=== PATIENT | female | born 1955 | race Hispanic/Latino ===

== ENCOUNTER → 2019-11-21 | Outpatient (CLI) | payer OTHER, MEDICARE ==
[~2019-11-21] MED LIST: IOHEXOL 350 MG/ML 100ML INFUS..BTL IV ONE
== END | disposition home or self-care (01) ==
LOC: RAH 07:32
PROVIDERS: ATTEND Internal Medicine Gastroenterology
DX: C18.7 Malignant neoplasm of sigmoid colon (principal); J98.11 Atelectasis; K80.20 Calculus of gallbladder without cholecystitis without obstruction; E65 Localized adiposity; M47.814 Spondylosis without myelopathy or radiculopathy, thoracic region; Z90.710 Acquired absence of both cervix and uterus
CPT/HCPCS: 71270; 74178; Q9967

== ENCOUNTER → 2022-01-22 | Outpatient (CLI) | payer OTHER, MEDICARE ==
[~2022-01-22] MED LIST changes: -IOHEXOL 350 MG/ML 100ML INFUS..BTL IV ONE; +LIDOCAINE HCL 4% LTA SOL 4 ML VIAL ONE
== END | disposition home or self-care (01) ==
LOC: WHH 09:29
PROVIDERS: ATTEND Family Medicine
DX: I89.0 Lymphedema, not elsewhere classified (principal); S81.802D Unspecified open wound, left lower leg, subsequent encounter; E11.51 Type 2 diabetes mellitus with diabetic peripheral angiopathy without gangrene; I10 Essential (primary) hypertension; E78.5 Hyperlipidemia, unspecified; M47.814 Spondylosis without myelopathy or radiculopathy, thoracic region; Z95.1 Presence of aortocoronary bypass graft; Z90.49 Acquired absence of other specified parts of digestive tract; Z90.710 Acquired absence of both cervix and uterus; Z79.4 Long term (current) use of insulin; Z79.82 Long term (current) use of aspirin; Z79.899 Other long term (current) drug therapy; Z85.038 Personal history of other malignant neoplasm of large intestine; X58.XXXD Exposure to other specified factors, subsequent encounter
CPT/HCPCS: G0463

== ENCOUNTER → 2022-02-05 | Outpatient (CLI) | payer OTHER, MEDICARE | END | disposition home or self-care (01) | LOC: WHH 09:40 | PROVIDERS: ATTEND Family Medicine | DX: I89.0 Lymphedema, not elsewhere classified (principal); S81.802D Unspecified open wound, left lower leg, subsequent encounter; E11.51 Type 2 diabetes mellitus with diabetic peripheral angiopathy without gangrene; I10 Essential (primary) hypertension; E78.5 Hyperlipidemia, unspecified; B35.1 Tinea unguium; R60.0 Localized edema; M47.814 Spondylosis without myelopathy or radiculopathy, thoracic region; Z95.1 Presence of aortocoronary bypass graft; Z90.49 Acquired absence of other specified parts of digestive tract; Z90.710 Acquired absence of both cervix and uterus; Z79.4 Long term (current) use of insulin; Z79.82 Long term (current) use of aspirin; Z79.899 Other long term (current) drug therapy; Z85.038 Personal history of other malignant neoplasm of large intestine; X58.XXXD Exposure to other specified factors, subsequent encounter | CPT/HCPCS: 11721 ==

== ENCOUNTER → 2022-05-12 | Outpatient (CLI) | payer OTHER, MEDICARE | END | disposition home or self-care (01) | LOC: SHCH 09:21 | PROVIDERS: ATTEND Internal Medicine Cardiovascular Disease | DX: I25.118 Atherosclerotic heart disease of native coronary artery with other forms of angina pectoris (principal); I87.2 Venous insufficiency (chronic) (peripheral); E11.9 Type 2 diabetes mellitus without complications; E78.5 Hyperlipidemia, unspecified; I11.9 Hypertensive heart disease without heart failure | CPT/HCPCS: 93306; 93970 ==

== ENCOUNTER → 2022-05-21 | Outpatient (CLI) | payer OTHER, MEDICARE ==
[2022-05-21 12:22] LABS: BASOPHILS % (AUTO) 0.7 % (0.0-5.0); EOSINOPHILS % (AUTO) 5.4 % (0.0-8.0); HEMATOCRIT 35.6 % (36-48); LYMPHOCYTES % (AUTO) 23.1 % (21.0-51.0); MEAN CORPUSCULAR HEMOGLOBIN 29.1 pg (27.0-33.0); MEAN CORPUSCULAR HGB CONC 34.6 g/dL (32.0-36.0); MEAN CORPUSCULAR VOLUME 84.2 fL (79-99); MONOCYTES % (AUTO) 6.4 % (3.0-13.0); NEUTROPHILS % (AUTO) 64.2 % (40.0-77.0); PLATELET COUNT (AUTO) 305 K/uL (130-400); RED BLOOD CELL COUNT(AUTO) 4.23 MIL/uL (4.00-5.50); RED CELL DISTRIBUTION WIDTH 13.8 % (11.0-15.5); WHITE BLOOD COUNT (AUTO) 6.1 K/uL (4.8-10.8)
[2022-05-21 12:39] LABS: ALBUMIN 1.5 g/dL (3.5-5.0); CREATININE 1.8 mg/dL (0.5-1.5); POTASSIUM 3.3 mmol/L (3.5-5.1); TOTAL PROTEIN, SERUM 5.6 g/dL (6.0-8.3)
[2022-05-21 13:44] LABS: B-TYPE NATRIURETIC PEPTIDE 156 pg/mL (0-100)
== END | disposition home or self-care (01) ==
LOC: LAB 08:30
PROVIDERS: ATTEND Internal Medicine Cardiovascular Disease
DX: I50.31 Acute diastolic (congestive) heart failure (principal)
CPT/HCPCS: 36415; 80053; 83880; 85025

== ENCOUNTER 2022-06-09 15:41 | Inpatient (IN) | payer OTHER, MEDICARE ==
[~2022-06-09] VITALS: Ht 157.5 cm; Wt 93.3 kg
[2022-06-09] MEDS ORDERED: POTA-183 PO (16:15)
[2022-06-09] MEDS ORDERED: ISOS30TA92 PO (16:16)
[2022-06-09] MEDS ORDERED: AMOX500C2 PO (16:18)
[2022-06-09] MEDS ORDERED: FURO40TA5 PO (16:19)
[2022-06-09] MEDS ORDERED: CARV12.511 PO (16:21)
[2022-06-09] MEDS ORDERED: PREG75CA75 PO (16:21)
[2022-06-09] MEDS ORDERED: ATOR40TA69 PO (16:22)
[2022-06-09] MEDS ORDERED: CETI10TA57 PO (16:24)
[2022-06-09] MEDS ORDERED: AMLO-258 PO (16:24)
[2022-06-09 16:34] LABS: BASOPHILS % (AUTO) 0.8 % (0.0-5.0); EOSINOPHILS % (AUTO) 5.7 % (0.0-8.0); HEMATOCRIT 31.2 % (36-48); LYMPHOCYTES % (AUTO) 15.6 % (21.0-51.0); MEAN CORPUSCULAR HEMOGLOBIN 29.1 pg (27.0-33.0); MEAN CORPUSCULAR HGB CONC 34.6 g/dL (32.0-36.0); MEAN CORPUSCULAR VOLUME 84.1 fL (79-99); NEUTROPHILS % (AUTO) 71.5 % (40.0-77.0); PLATELET COUNT (AUTO) 328 K/uL (130-400); RED BLOOD CELL COUNT(AUTO) 3.71 MIL/uL (4.00-5.50); RED CELL DISTRIBUTION WIDTH 13.3 % (11.0-15.5); WHITE BLOOD COUNT (AUTO) 7.9 K/uL (4.8-10.8)
[2022-06-09 16:44] LABS: CREATININE 1.6 mg/dL (0.5-1.5); POTASSIUM 3.8 mmol/L (3.5-5.1)
[2022-06-09 16:53] LABS: ALBUMIN 1.7 g/dL (3.5-5.0); TOTAL PROTEIN, SERUM 5.8 g/dL (6.0-8.3)
[2022-06-09] MEDS ORDERED: IPRATROPIUM/ALBUTEROL SULFATE 3 ML SOLUTION IH ONE (17:00)
[2022-06-09] MEDS ORDERED: FUROSEMIDE 40MG VIAL IV ONE (17:00)
[2022-06-09 17:11] LABS: B-TYPE NATRIURETIC PEPTIDE 452 pg/mL (0-100)
[2022-06-09] MEDS: CEFTRIAXONE 1G VIAL IV SCH (18:30)
[2022-06-09] MEDS ORDERED: LACTULOSE 20 GM/30 ML UDCUP PO PRN (18:30)
[2022-06-09] MEDS ORDERED: ONDANSETRON 4MG INJ IV PRN (18:30)
[2022-06-09] MEDS ORDERED: ACETAMINOPHEN 325 MG TAB PO PRN ×2 (18:30)
[2022-06-09] MEDS ORDERED: AZITHROMYCIN 500MG+NS 250ML IVPB SCH (18:30)
[2022-06-09] MEDS ORDERED: CEFTRIAXONE 1G VIAL IVP ONE (18:30)
[2022-06-09 19:03] LABS: APPEARANCE,URINE CLEAR (CLEAR); BILIRUBIN,URINE NEGATIVE (NEGATIVE); COLOR,URINE COLORLESS (YELLOW); GLUCOSE, URINE (UA) 200 mg/dL (NEGATIVE); KETONES,URINE NEGATIVE (NEGATIVE); LEUKOCYTE ESTERASE ,URINE NEGATIVE Leu/uL (NEGATIVE); NITRATE,URINE NEGATIVE (NEGATIVE); PH,URINE 6.5 (5.0-8.0); PROTEIN,URINE 200 mg/dL (NEGATIVE); UROBILINOGEN,URINE 0.2 mg/dL (0.2-1.0)
[2022-06-09 19:08] LABS: BACTERIA,URINE RARE /HPF (None Seen); MUCUS,URINE RARE LPF (None Seen)
[2022-06-09] MEDS ORDERED: CETIRIZINE HCL 5 MG TABLET PO PRN (20:00)
[2022-06-09] MEDS ORDERED: SODIUM CHLORIDE 3% FOR INHALATION 4 ML/AMP VIAL.NEB IH ONE (21:07)
[2022-06-09] MEDS: BUDESONIDE 0.25 MG/2 ML INH IH SCH (21:09)
[2022-06-09] MEDS: SOLU-MEDROL 40MG VIAL IVP SCH (21:11)
[2022-06-09] MEDS: CARVEDILOL 12.5 MG TABLET PO SCH (21:11)
[2022-06-09] MEDS: PREGABALIN 75 MG CAPSULE PO SCH (21:11)
[2022-06-09] MEDS: FAMOTIDINE 20MG TAB PO SCH (21:11)
[2022-06-09] MEDS: INSULIN HUMULIN R 100 UNIT/ML 3ML SQ SCH (22:50)
[2022-06-09 23:30] VITALS: BP 132/69
[2022-06-09] MEDS ORDERED: ASPI-1443 PO (23:34)
[2022-06-09] MEDS ORDERED: INSU3INS3 SQ (23:35)
[2022-06-09] MEDS: ALBUTEROL 0.083% 2.5 MG/3 ML INH IH SCH (23:39)
[2022-06-10 04:25] VITALS: BP 159/70
[2022-06-10] MEDS: INSULIN HUMULIN R 100 UNIT/ML 3ML SQ SCH ×3 (05:51→18:10)
[2022-06-10] MEDS ORDERED: SODIUM CHLORIDE 3% FOR INHALATION 4 ML/AMP VIAL.NEB IH ONE ×2 (06:33→11:14)
[2022-06-10] MEDS: ALBUTEROL 0.083% 2.5 MG/3 ML INH IH SCH ×4 (06:34→23:32)
[2022-06-10] MEDS: BUDESONIDE 0.25 MG/2 ML INH IH SCH ×2 (06:35→19:05)
[2022-06-10 08:00] VITALS: BP 152/66
[2022-06-10 08:22] LABS: HEMATOCRIT 32.6 % (36-48); MEAN CORPUSCULAR HEMOGLOBIN 28.5 pg (27.0-33.0); MEAN CORPUSCULAR HGB CONC 33.1 g/dL (32.0-36.0); RED BLOOD CELL COUNT(AUTO) 3.79 MIL/uL (4.00-5.50); RED CELL DISTRIBUTION WIDTH 13.2 % (11.0-15.5); WHITE BLOOD COUNT (AUTO) 7.2 K/uL (4.8-10.8)
[2022-06-10 08:29] LABS: CREATININE 1.7 mg/dL (0.5-1.5); POTASSIUM 4.1 mmol/L (3.5-5.1)
[2022-06-10] MEDS: PREGABALIN 75 MG CAPSULE PO SCH ×2 (08:50→20:03)
[2022-06-10] MEDS: SOLU-MEDROL 40MG VIAL IVP SCH ×2 (08:51→20:03)
[2022-06-10] MEDS: CARVEDILOL 12.5 MG TABLET PO SCH ×2 (08:51→20:03)
[2022-06-10] MEDS: AMLODIPINE 5 MG TAB PO SCH (08:51)
[2022-06-10] MEDS: FUROSEMIDE 20MG VIAL IV SCH (10:50)
[2022-06-10 10:51] LABS: HEMOGLOBIN A1C 8.2 % (4.0-6.0)
[2022-06-10] MEDS ORDERED: POTASSIUM CHLORIDE 10% ELIXIR 20 MEQ/15 ML UDCUP PO PRN (11:00)
[2022-06-10] MEDS ORDERED: KCL 20 MEQ ERTAB PO PRN (11:00)
[2022-06-10] MEDS ORDERED: POTASSIUM CHLORIDE 20MEQ/100ML 100 ML IV PRN (11:00)
[2022-06-10] MEDS ORDERED: LIDOCAINE HCL-MPF 1% 2ML VIAL IV PRN (11:00)
[2022-06-10 12:00] VITALS: BP 168/68
[2022-06-10 16:00] VITALS: BP 159/61
[2022-06-10] MEDS: ATORVASTATIN 40 MG TABLET PO SCH (18:09)
[2022-06-10] MEDS: ISOSORBIDE MONO 30MG SR TAB PO SCH (18:09)
[2022-06-10] MEDS: AZITHROMYCIN 500MG+NS 250ML 250 ML IV SCH (18:09)
[2022-06-10] MEDS: CEFTRIAXONE 1G VIAL IV SCH (18:09)
[2022-06-10] MEDS: FAMOTIDINE 20MG TAB PO SCH (20:03)
[2022-06-10 20:44] VITALS: BP 153/67
[2022-06-10 23:47] VITALS: BP 144/66
[2022-06-11 03:41] VITALS: BP 136/68
[2022-06-11 04:24] LABS: BASOPHILS % (AUTO) 0.1 % (0.0-5.0); HEMATOCRIT 30.1 % (36-48); LYMPHOCYTES % (AUTO) 7.4 % (21.0-51.0); MEAN CORPUSCULAR HEMOGLOBIN 28.9 pg (27.0-33.0); MEAN CORPUSCULAR HGB CONC 34.2 g/dL (32.0-36.0); MEAN CORPUSCULAR VOLUME 84.6 fL (79-99); MONOCYTES % (AUTO) 1.8 % (3.0-13.0); NEUTROPHILS % (AUTO) 90.2 % (40.0-77.0); PLATELET COUNT (AUTO) 353 K/uL (130-400); RED BLOOD CELL COUNT(AUTO) 3.56 MIL/uL (4.00-5.50); RED CELL DISTRIBUTION WIDTH 13.2 % (11.0-15.5); WHITE BLOOD COUNT (AUTO) 10.2 K/uL (4.8-10.8)
[2022-06-11 04:43] LABS: % IRON SATURATION 27.8 % (22-44)
[2022-06-11 05:01] LABS: ALBUMIN 1.8 g/dL (3.5-5.0); CREATININE 1.8 mg/dL (0.5-1.5); MAGNESIUM 1.9 mg/dL (1.80-2.40); PHOSPHORUS 4.7 mg/dL (2.5-4.9); POTASSIUM 3.9 mmol/L (3.5-5.1); TOTAL PROTEIN, SERUM 5.8 g/dL (6.0-8.3); URIC ACID 6.1 mg/dL (2.6-7.2)
[2022-06-11] MEDS: INSULIN HUMULIN R 100 UNIT/ML 3ML SQ SCH ×5 (06:53→20:04)
[2022-06-11] MEDS: BUDESONIDE 0.25 MG/2 ML INH IH SCH ×2 (07:03→18:23)
[2022-06-11] MEDS: ALBUTEROL 0.083% 2.5 MG/3 ML INH IH SCH ×4 (07:03→23:07)
[2022-06-11 08:00] VITALS: BP 149/67
[2022-06-11] MEDS: FUROSEMIDE 20MG VIAL IV SCH (08:48)
[2022-06-11] MEDS: SOLU-MEDROL 40MG VIAL IVP SCH (08:49)
[2022-06-11] MEDS: AMLODIPINE 5 MG TAB PO SCH (08:49)
[2022-06-11] MEDS: PREGABALIN 75 MG CAPSULE PO SCH ×2 (08:49→20:10)
[2022-06-11] MEDS: ENOXAPARIN SODIUM 40 MG/0.4 ML SYRINGE SQ SCH (08:49)
[2022-06-11] MEDS: Vitamin B Complex/Vit C/Folic Acid PO SCH (08:49)
[2022-06-11] MEDS: CARVEDILOL 12.5 MG TABLET PO SCH ×2 (08:50→20:10)
[2022-06-11 11:57] VITALS: BP 150/66
[2022-06-11] MEDS ORDERED: COMPOUND IV MISC 1 EACH IVSOLN MISC PRN (12:30)
[2022-06-11 16:00] VITALS: BP 151/68
[2022-06-11] MEDS ORDERED: SODIUM CHLORIDE 3% FOR INHALATION 4 ML/AMP VIAL.NEB IH ONE ×2 (16:13→23:04)
[2022-06-11] MEDS ORDERED: 0.9% NACL 250ML 250 ML ONE (17:18)
[2022-06-11] MEDS: AZITHROMYCIN 500MG+NS 250ML 250 ML IV SCH (17:42)
[2022-06-11] MEDS: ISOSORBIDE MONO 30MG SR TAB PO SCH (17:43)
[2022-06-11] MEDS: ATORVASTATIN 40 MG TABLET PO SCH (17:43)
[2022-06-11] MEDS: CEFTRIAXONE 1G VIAL IV SCH (18:46)
[2022-06-11] MEDS: FAMOTIDINE 20MG TAB PO SCH (20:10)
[2022-06-11 20:56] VITALS: BP 138/65
[2022-06-11] MEDS ORDERED: SOLU-MEDROL 40MG VIAL IVP SCH (21:00)
[2022-06-12 00:46] VITALS: BP 133/64
[2022-06-12 04:05] VITALS: BP 141/72
[2022-06-12 04:24] LABS: CREATININE 1.9 mg/dL (0.5-1.5); POTASSIUM 3.6 mmol/L (3.5-5.1)
[2022-06-12 04:27] LABS: HEMATOCRIT 31.5 % (36-48); MEAN CORPUSCULAR HEMOGLOBIN 28.9 pg (27.0-33.0); MEAN CORPUSCULAR HGB CONC 34.9 g/dL (32.0-36.0); MEAN CORPUSCULAR VOLUME 82.9 fL (79-99); RED BLOOD CELL COUNT(AUTO) 3.8 MIL/uL (4.00-5.50); RED CELL DISTRIBUTION WIDTH 13.1 % (11.0-15.5); WHITE BLOOD COUNT (AUTO) 11.6 K/uL (4.8-10.8)
[2022-06-12] MEDS: INSULIN HUMULIN R 100 UNIT/ML 3ML SQ SCH ×4 (06:16→11:50)
[2022-06-12] MEDS: ALBUTEROL 0.083% 2.5 MG/3 ML INH IH SCH ×2 (07:01→11:01)
[2022-06-12] MEDS: BUDESONIDE 0.25 MG/2 ML INH IH SCH (07:01)
[2022-06-12 07:04] VITALS: BP 154/73
[2022-06-12] MEDS ORDERED: IRON SUCROSE COMPLEX 300 MG in 0.9%NACL 50ML 50 ML IV SCH (09:00)
[2022-06-12] MEDS ORDERED: PREDNISONE 20 MG TABLET PO SCH (09:00)
[2022-06-12] MEDS ORDERED: FUROSEMIDE 40 MG TABLET PO SCH (09:00)
[2022-06-12] MEDS: ENOXAPARIN SODIUM 40 MG/0.4 ML SYRINGE SQ SCH (09:42)
[2022-06-12] MEDS: PREGABALIN 75 MG CAPSULE PO SCH (09:42)
[2022-06-12] MEDS: AMLODIPINE 5 MG TAB PO SCH (09:42)
[2022-06-12 09:43] VITALS: BP 154/73
[2022-06-12] MEDS: CARVEDILOL 12.5 MG TABLET PO SCH (09:43)
[2022-06-12] MEDS: Vitamin B Complex/Vit C/Folic Acid PO SCH (09:43)
[2022-06-12] MEDS ORDERED: PRED10TA3 PO (12:04)
[2022-06-12] MEDS ORDERED: LEVO750T68 PO (12:04)
== END 2022-06-12 15:45 | disposition home or self-care (01) | DRG 291 ==
LOC: EDH 15:41 → EDHIP 18:30 → 4AH 23:11
PROVIDERS: ADMIT Hospitalist; ATTEND Hospitalist
DX: I11.0 Hypertensive heart disease with heart failure (principal); J18.9 Pneumonia, unspecified organism; J91.8 Pleural effusion in other conditions classified elsewhere; N17.9 Acute kidney failure, unspecified; Z20.822 Contact with and (suspected) exposure to COVID-19; I50.9 Heart failure, unspecified; E66.9 Obesity, unspecified; Z68.37 Body mass index [BMI] 37.0-37.9, adult; M94.0 Chondrocostal junction syndrome [Tietze]; D50.9 Iron deficiency anemia, unspecified; E11.21 Type 2 diabetes mellitus with diabetic nephropathy; E11.51 Type 2 diabetes mellitus with diabetic peripheral angiopathy without gangrene; E11.65 Type 2 diabetes mellitus with hyperglycemia; E78.00 Pure hypercholesterolemia, unspecified; I25.10 Atherosclerotic heart disease of native coronary artery without angina pectoris; Z90.710 Acquired absence of both cervix and uterus
CPT/HCPCS: 36415; 71045; 76770; 80048; 80053; 81001; 82728; 82948; 83036; 83540; 83550; 83735; 83880; 84100; 84484; 84550; 85025; 85027; 86738; 87449; 87635; 93005; 94640; 94664; 94760; C9803; G0378; J0456; J0696; J1650; J1756; J1815; J1940; J2920; J7050

== ENCOUNTER 2022-07-20 07:15 | Inpatient (IN) | payer OTHER, MEDICARE ==
[~2022-07-20] VITALS: Ht 157.5 cm; Wt 79.8 kg
[~2022-07-20 07:15] MED LIST changes: +AMLO-258 PO; +ASPI-1443 PO; +ATOR40TA69 PO; +CARV12.511 PO; +CETI10TA57 PO; +FURO40TA5 PO; +INSU3INS3 SQ; +ISOS30TA92 PO; +LEVO750T68 PO; -LIDOCAINE HCL 4% LTA SOL 4 ML VIAL ONE; +POTA-183 PO; +PRED10TA3 PO; +PREG75CA75 PO
[2022-07-20 07:35] LABS: BASOPHILS % (AUTO) 0.3 % (0.0-5.0); HEMATOCRIT 31.6 % (36-48); MEAN CORPUSCULAR HEMOGLOBIN 28.6 pg (27.0-33.0); MEAN CORPUSCULAR HGB CONC 34.2 g/dL (32.0-36.0); MEAN CORPUSCULAR VOLUME 83.6 fL (79-99); MONOCYTES % (AUTO) 6.5 % (3.0-13.0); NEUTROPHILS % (AUTO) 85.7 % (40.0-77.0); PLATELET COUNT (AUTO) 263 K/uL (130-400); RED BLOOD CELL COUNT(AUTO) 3.78 MIL/uL (4.00-5.50); RED CELL DISTRIBUTION WIDTH 13.1 % (11.0-15.5); WHITE BLOOD COUNT (AUTO) 8.8 K/uL (4.8-10.8)
[2022-07-20 07:57] LABS: CREATININE 1.6 mg/dL (0.5-1.5); POTASSIUM 3.4 mmol/L (3.5-5.1); TOTAL PROTEIN, SERUM 5.8 g/dL (6.0-8.3)
[2022-07-20 08:07] LABS: B-TYPE NATRIURETIC PEPTIDE 584 pg/mL (0-100)
[2022-07-20] MEDS ORDERED: FUROSEMIDE 40MG VIAL IV ONE (08:30)
[2022-07-20] MEDS ORDERED: ASPIRIN 81MG CHEW TAB PO SCH (09:00)
[2022-07-20] MEDS ORDERED: HYDRALAZINE 20MG/ML VIAL IV PRN ×2 (09:00)
[2022-07-20] MEDS ORDERED: ACETAMINOPHEN 650 MG SUPPOSITORY RC PRN (09:00)
[2022-07-20] MEDS ORDERED: CEFTRIAXONE 1G VIAL IVP ONE (09:00)
[2022-07-20] MEDS ORDERED: ONDANSETRON 4MG INJ IVP PRN (09:00)
[2022-07-20] MEDS ORDERED: SOLU-MEDROL 125MG VIAL IM ONE (09:00)
[2022-07-20] MEDS: SOLU-MEDROL 125MG VIAL IVP SCH ×2 (09:00→17:22)
[2022-07-20] MEDS ORDERED: LACTULOSE 20 GM/30 ML UDCUP PO PRN (09:00)
[2022-07-20] MEDS ORDERED: OSELTAMIVIR PHOSPHATE 75 MG CAP PO SCH (09:00)
[2022-07-20] MEDS ORDERED: TEMAZEPAM 15 MG CAPSULE PO PRN (09:00)
[2022-07-20] MEDS ORDERED: METOPROLOL TARTRATE 25 MG TAB PO SCH (09:00)
[2022-07-20] MEDS: AZITHROMYCIN 500MG+NS 250ML IVPB SCH (09:10)
[2022-07-20] MEDS ORDERED: POTASSIUM CHLORIDE 20MEQ/100ML 100 ML IV PRN (09:30)
[2022-07-20] MEDS ORDERED: LIDOCAINE HCL-MPF 1% 2ML VIAL IV PRN (09:30)
[2022-07-20] MEDS ORDERED: POTASSIUM CHLORIDE 10% ELIXIR 20 MEQ/15 ML UDCUP PO PRN (09:30)
[2022-07-20 09:32] LABS: APPEARANCE,URINE CLEAR (CLEAR); BILIRUBIN,URINE NEGATIVE (NEGATIVE); COLOR,URINE LIGHT-YELLOW (YELLOW); GLUCOSE, URINE (UA) >=1000 mg/dL (NEGATIVE); KETONES,URINE NEGATIVE (NEGATIVE); LEUKOCYTE ESTERASE ,URINE NEGATIVE Leu/uL (NEGATIVE); NITRATE,URINE NEGATIVE (NEGATIVE); OCCULT BLOOD,URINE SMALL (NEGATIVE); PROTEIN,URINE 600 mg/dL (NEGATIVE); UROBILINOGEN,URINE 0.2 mg/dL (0.2-1.0)
[2022-07-20] MEDS: OSELTAMIVIR PHOSPHATE 300 MG, WATER FOR INJECTION,STERILE 10 ML, COMPOUNDING VEHICLE SF... PO SCH ×6 (09:32→21:13)
[2022-07-20 09:38] LABS: BACTERIA,URINE RARE /HPF (None Seen); MUCUS,URINE RARE LPF (None Seen); SQUAMOUS EPITHELIAL CELL,UR RARE /HPF (0-2); WBC,URINE 0-1 /HPF (0-1)
[2022-07-20] MEDS ORDERED: COMPOUND PO MISCELLANEOUS 1 EACH MISC MISC PRN (10:00)
[2022-07-20] MEDS: KCL 20 MEQ ERTAB PO PRN ×2 (10:16→13:21)
[2022-07-20] MEDS: ENOXAPARIN SODIUM 40 MG/0.4 ML SYRINGE SQ SCH (10:18)
[2022-07-20] MEDS ORDERED: IPRATROPIUM/ALBUTEROL SULFATE 3 ML SOLUTION IH ONE (10:40)
[2022-07-20 11:00] VITALS: BP 140/64
[2022-07-20] MEDS: INSULIN HUMULIN R 100 UNIT/ML 3ML SQ SCH ×3 (11:39→21:15)
[2022-07-20] MEDS ORDERED: CETIRIZINE HCL 5 MG TABLET PO PRN (14:00)
[2022-07-20 16:00] VITALS: BP 185/79
[2022-07-20] MEDS: ISOSORBIDE MONO 30MG SR TAB PO SCH (17:20)
[2022-07-20] MEDS: ATORVASTATIN 40 MG TABLET PO SCH (17:20)
[2022-07-20] MEDS: CEFTRIAXONE 2GM VIAL IVP SCH (17:30)
[2022-07-20] MEDS ORDERED: CARVEDILOL 6.25 MG TABLET PO ONE (17:30)
[2022-07-20] MEDS: IPRATROPIUM/ALBUTEROL SULFATE 3 ML SOLUTION IH SCH ×2 (18:56→23:40)
[2022-07-20 20:13] VITALS: BP 156/77
[2022-07-20] MEDS: CARVEDILOL 12.5 MG TABLET PO SCH (21:13)
[2022-07-20] MEDS: FUROSEMIDE 20MG VIAL IV SCH (21:13)
[2022-07-20] MEDS: CLONIDINE HCL 0.1 MG TABLET PO PRN (22:32)
[2022-07-21] MEDS: SOLU-MEDROL 125MG VIAL IVP SCH (00:59)
[2022-07-21 03:51] VITALS: BP 145/56
[2022-07-21 05:12] LABS: HEMATOCRIT 29.3 % (36-48); MEAN CORPUSCULAR HEMOGLOBIN 28.3 pg (27.0-33.0); MEAN CORPUSCULAR HGB CONC 34.1 g/dL (32.0-36.0); RED BLOOD CELL COUNT(AUTO) 3.53 MIL/uL (4.00-5.50); RED CELL DISTRIBUTION WIDTH 13.2 % (11.0-15.5); WHITE BLOOD COUNT (AUTO) 4.8 K/uL (4.8-10.8)
[2022-07-21 05:31] LABS: CREATININE 1.6 mg/dL (0.5-1.5); PHOSPHORUS 3.2 mg/dL (2.5-4.9); POTASSIUM 3.2 mmol/L (3.5-5.1)
[2022-07-21] MEDS: IPRATROPIUM/ALBUTEROL SULFATE 3 ML SOLUTION IH SCH ×4 (07:22→23:14)
[2022-07-21 07:30] VITALS: BP 183/97
[2022-07-21] MEDS: AZITHROMYCIN 500MG+NS 250ML IVPB SCH (09:45)
[2022-07-21] MEDS: ASPIRIN 81 MG EC TAB PO SCH (09:46)
[2022-07-21] MEDS: DEXAMETHASONE SOD PHOSPHATE 4 MG/ML 1ML VIAL IV SCH (09:46)
[2022-07-21] MEDS: CARVEDILOL 12.5 MG TABLET PO SCH ×2 (09:47→21:33)
[2022-07-21] MEDS: ENOXAPARIN SODIUM 40 MG/0.4 ML SYRINGE SQ SCH (09:49)
[2022-07-21] MEDS: OSELTAMIVIR PHOSPHATE 300 MG, WATER FOR INJECTION,STERILE 10 ML, COMPOUNDING VEHICLE SF... PO SCH ×6 (09:50→21:32)
[2022-07-21] MEDS: INSULIN HUMULIN R 100 UNIT/ML 3ML SQ SCH ×4 (09:55→21:31)
[2022-07-21] MEDS: FUROSEMIDE 20MG VIAL IV SCH ×2 (09:57→21:33)
[2022-07-21 10:34] LABS: ABG BASE EXCESS 1.3 mmol/L (-2.0-3.0); ABG HCO3 26.2 mmol/L (21.0-28.0); ABG OXYGEN SATURATION 93.8 % (95.0-99.0); ABG PCO2 42 mmHg (32-45)
[2022-07-21 11:00] VITALS: BP 164/62
[2022-07-21] MEDS: FAMOTIDINE 20MG TAB PO SCH (12:53)
[2022-07-21] MEDS: KCL 20 MEQ ERTAB PO SCH (14:44)
[2022-07-21] MEDS: CLONIDINE HCL 0.1 MG TABLET PO PRN (15:57)
[2022-07-21 16:00] VITALS: BP 155/89
[2022-07-21] MEDS: CEFTRIAXONE 2GM VIAL IVP SCH (18:15)
[2022-07-21] MEDS: ISOSORBIDE MONO 30MG SR TAB PO SCH (18:16)
[2022-07-21] MEDS: KCL 20 MEQ ERTAB PO PRN (18:16)
[2022-07-21] MEDS: ATORVASTATIN 40 MG TABLET PO SCH (18:17)
[2022-07-21 20:00] VITALS: BP 150/75
[2022-07-22] VITALS (7 sets, daily range): BP systolic 142–203; BP diastolic 59–78
[2022-07-22] MEDS: ACETAMINOPHEN 325 MG TAB PO PRN ×2 (01:00→21:21)
[2022-07-22 05:42] LABS: HEMATOCRIT 32.8 % (36-48); MEAN CORPUSCULAR HEMOGLOBIN 28.6 pg (27.0-33.0); MEAN CORPUSCULAR HGB CONC 34.8 g/dL (32.0-36.0); MEAN CORPUSCULAR VOLUME 82.2 fL (79-99); RED BLOOD CELL COUNT(AUTO) 3.99 MIL/uL (4.00-5.50); RED CELL DISTRIBUTION WIDTH 13.2 % (11.0-15.5); WHITE BLOOD COUNT (AUTO) 12.9 K/uL (4.8-10.8)
[2022-07-22] MEDS: INSULIN HUMULIN R 100 UNIT/ML 3ML SQ SCH ×4 (06:01→21:18)
[2022-07-22 06:05] LABS: ALBUMIN 1.7 g/dL (3.5-5.0); CREATININE 1.5 mg/dL (0.5-1.5); MAGNESIUM 2.2 mg/dL (1.80-2.40); POTASSIUM 3.5 mmol/L (3.5-5.1); TOTAL PROTEIN, SERUM 5.7 g/dL (6.0-8.3)
[2022-07-22] MEDS: CLONIDINE HCL 0.1 MG TABLET PO PRN (06:07)
[2022-07-22] MEDS: IPRATROPIUM/ALBUTEROL SULFATE 3 ML SOLUTION IH SCH ×4 (06:38→23:36)
[2022-07-22] MEDS: ASPIRIN 81 MG EC TAB PO SCH (09:50)
[2022-07-22] MEDS: FAMOTIDINE 20MG TAB PO SCH (09:50)
[2022-07-22] MEDS: KCL 20 MEQ ERTAB PO SCH (09:51)
[2022-07-22] MEDS: ENOXAPARIN SODIUM 40 MG/0.4 ML SYRINGE SQ SCH (09:51)
[2022-07-22] MEDS: FUROSEMIDE 20MG VIAL IV SCH ×2 (09:52→21:19)
[2022-07-22] MEDS: OSELTAMIVIR PHOSPHATE 300 MG, WATER FOR INJECTION,STERILE 10 ML, COMPOUNDING VEHICLE SF... PO SCH ×6 (09:52→21:20)
[2022-07-22] MEDS: AZITHROMYCIN 500MG+NS 250ML IVPB SCH (09:52)
[2022-07-22] MEDS: DEXAMETHASONE SOD PHOSPHATE 4 MG/ML 1ML VIAL IV SCH (09:52)
[2022-07-22] MEDS: CARVEDILOL 12.5 MG TABLET PO SCH ×2 (09:56→21:19)
[2022-07-22] MEDS: ISOSORBIDE MONO 30MG SR TAB PO SCH (17:26)
[2022-07-22] MEDS: CEFTRIAXONE 2GM VIAL IVP SCH (17:26)
[2022-07-22] MEDS: ATORVASTATIN 40 MG TABLET PO SCH (17:26)
[2022-07-22] MEDS: HYDRALAZINE 25MG TABLET PO SCH (22:45)
[2022-07-22] MEDS: INSULIN GLARGINE 100 UNITS/ML 10 ML VIAL SQ SCH (22:46)
[2022-07-23] MEDS: CLONIDINE HCL 0.1 MG TABLET PO PRN (02:40)
[2022-07-23 04:00] VITALS: BP 199/95
[2022-07-23] MEDS ORDERED: LABETALOL 20MG SYG IV PRN (06:13)
[2022-07-23] MEDS: IPRATROPIUM/ALBUTEROL SULFATE 3 ML SOLUTION IH SCH ×4 (06:29→23:08)
[2022-07-23] MEDS ORDERED: HYDRALAZINE 20MG/ML VIAL IV PRN (06:30)
[2022-07-23] MEDS: INSULIN HUMULIN R 100 UNIT/ML 3ML SQ SCH ×4 (06:49→21:12)
[2022-07-23 07:30] VITALS: BP 182/68
[2022-07-23] MEDS: ENOXAPARIN SODIUM 40 MG/0.4 ML SYRINGE SQ SCH (08:51)
[2022-07-23] MEDS: DEXAMETHASONE SOD PHOSPHATE 4 MG/ML 1ML VIAL IV SCH (08:52)
[2022-07-23] MEDS: AZITHROMYCIN 500MG+NS 250ML IVPB SCH (08:52)
[2022-07-23] MEDS: KCL 20 MEQ ERTAB PO SCH (08:52)
[2022-07-23] MEDS: FUROSEMIDE 20MG VIAL IV SCH ×2 (08:52→20:03)
[2022-07-23] MEDS: CARVEDILOL 12.5 MG TABLET PO SCH ×2 (08:52→20:03)
[2022-07-23] MEDS: HYDRALAZINE 25MG TABLET PO SCH ×2 (08:53→20:03)
[2022-07-23] MEDS: ASPIRIN 81 MG EC TAB PO SCH (08:53)
[2022-07-23] MEDS: AMLODIPINE 5 MG TAB PO SCH (08:53)
[2022-07-23] MEDS: FAMOTIDINE 20MG TAB PO SCH (09:00)
[2022-07-23] MEDS: OSELTAMIVIR PHOSPHATE 300 MG, WATER FOR INJECTION,STERILE 10 ML, COMPOUNDING VEHICLE SF... PO SCH ×6 (09:01→20:07)
[2022-07-23 12:00] VITALS: BP 144/59
[2022-07-23 17:00] VITALS: BP 173/64
[2022-07-23] MEDS: ISOSORBIDE MONO 30MG SR TAB PO SCH (17:37)
[2022-07-23] MEDS: ATORVASTATIN 40 MG TABLET PO SCH (17:37)
[2022-07-23] MEDS: CEFTRIAXONE 2GM VIAL IVP SCH (17:38)
[2022-07-23 20:00] VITALS: BP 161/60
[2022-07-23] MEDS: INSULIN GLARGINE 100 UNITS/ML 10 ML VIAL SQ SCH (21:13)
[2022-07-23 23:54] VITALS: BP 150/56
[2022-07-24] MEDS: ACETAMINOPHEN 325 MG TAB PO PRN (03:52)
[2022-07-24 03:56] VITALS: BP 149/71
[2022-07-24 05:10] LABS: HEMATOCRIT 33.2 % (36-48); MEAN CORPUSCULAR HEMOGLOBIN 27.9 pg (27.0-33.0); MEAN CORPUSCULAR HGB CONC 34.3 g/dL (32.0-36.0); MEAN CORPUSCULAR VOLUME 81.4 fL (79-99); RED BLOOD CELL COUNT(AUTO) 4.08 MIL/uL (4.00-5.50); WHITE BLOOD COUNT (AUTO) 7.8 K/uL (4.8-10.8)
[2022-07-24 05:22] LABS: ALBUMIN 1.7 g/dL (3.5-5.0); CREATININE 1.6 mg/dL (0.5-1.5); POTASSIUM 3.4 mmol/L (3.5-5.1); TOTAL PROTEIN, SERUM 5.3 g/dL (6.0-8.3)
[2022-07-24] MEDS: INSULIN HUMULIN R 100 UNIT/ML 3ML SQ SCH ×2 (05:40→12:03)
[2022-07-24] MEDS: KCL 20 MEQ ERTAB PO PRN ×2 (06:08→12:02)
[2022-07-24] MEDS: IPRATROPIUM/ALBUTEROL SULFATE 3 ML SOLUTION IH SCH ×2 (06:23→11:01)
[2022-07-24 07:35] VITALS: BP 198/86
[2022-07-24] MEDS: FUROSEMIDE 20MG VIAL IV SCH (09:50)
[2022-07-24] MEDS: HYDRALAZINE 25MG TABLET PO SCH ×3 (09:50→14:39)
[2022-07-24] MEDS: DEXAMETHASONE SOD PHOSPHATE 4 MG/ML 1ML VIAL IV SCH (09:50)
[2022-07-24] MEDS: ASPIRIN 81 MG EC TAB PO SCH (09:50)
[2022-07-24] MEDS: FAMOTIDINE 20MG TAB PO SCH (09:52)
[2022-07-24] MEDS: CARVEDILOL 12.5 MG TABLET PO SCH (09:52)
[2022-07-24] MEDS: AMLODIPINE 5 MG TAB PO SCH (09:52)
[2022-07-24] MEDS: KCL 20 MEQ ERTAB PO SCH (09:53)
[2022-07-24] MEDS: ENOXAPARIN SODIUM 40 MG/0.4 ML SYRINGE SQ SCH (09:54)
[2022-07-24] MEDS: AZITHROMYCIN 500MG+NS 250ML IVPB SCH (09:55)
[2022-07-24] MEDS: OSELTAMIVIR PHOSPHATE 300 MG, WATER FOR INJECTION,STERILE 10 ML, COMPOUNDING VEHICLE SF... PO SCH ×3 (09:56)
[2022-07-24 11:35] VITALS: BP 144/60
[2022-07-24] MEDS ORDERED: POTA-79 PO (15:32)
[2022-07-24] MEDS ORDERED: FURO40TA5 PO (15:32)
[2022-07-25] MEDS ORDERED: HYDR-4153 PO (06:21)
[2022-07-25] MEDS ORDERED: DEXA4 PO (06:21)
== END 2022-07-24 16:51 | disposition home or self-care (01) | DRG 177 ==
LOC: EDH 07:15 → EDHIP 08:57 → 4CH 10:46
PROVIDERS: ADMIT Internal Medicine; ATTEND Internal Medicine
DX: U07.1 COVID-19 (principal); I50.33 Acute on chronic diastolic (congestive) heart failure; J96.01 Acute respiratory failure with hypoxia; J12.82 Pneumonia due to coronavirus disease 2019; N17.9 Acute kidney failure, unspecified; I13.0 Hypertensive heart and chronic kidney disease with heart failure and stage 1 through stage 4 chronic kidney disease, or unspecified chronic kidney disease; L03.115 Cellulitis of right lower limb; L03.116 Cellulitis of left lower limb; I89.0 Lymphedema, not elsewhere classified; E11.22 Type 2 diabetes mellitus with diabetic chronic kidney disease; T38.0X5A Adverse effect of glucocorticoids and synthetic analogues, initial encounter; N18.30 Chronic kidney disease, stage 3 unspecified; E66.9 Obesity, unspecified; E11.65 Type 2 diabetes mellitus with hyperglycemia; E78.5 Hyperlipidemia, unspecified; I25.10 Atherosclerotic heart disease of native coronary artery without angina pectoris; Z95.1 Presence of aortocoronary bypass graft; Z90.49 Acquired absence of other specified parts of digestive tract; Z86.718 Personal history of other venous thrombosis and embolism; Z85.038 Personal history of other malignant neoplasm of large intestine; Z83.3 Family history of diabetes mellitus; Z82.49 Family history of ischemic heart disease and other diseases of the circulatory system; Z79.4 Long term (current) use of insulin; Z68.32 Body mass index [BMI] 32.0-32.9, adult
CPT/HCPCS: 36415; 36600; 71045; 71250; 74176; 80048; 80053; 81001; 82550; 82803; 82948; 83605; 83735; 83874; 83880; 84100; 84132; 84145; 84484; 85025; 85027; 85378; 87040; 87635; 87804; 93005; 93970; 93971; 94640; 94664; 94760; 97039; 99291; C9803; G0378; J0360; J0456; J0696; J1100; J1650; J1815; J1940; J2930

== ENCOUNTER → 2023-01-05 | Outpatient (CLI) | payer OTHER, MEDICARE ==
[~2023-01-05] MED LIST changes: -AMLO-258 PO; +AMLO5TAB4 PO; -FURO40TA5 PO; +HYDR-4153 PO; -LEVO750T68 PO; -POTA-183 PO; -PRED10TA3 PO; +PREG50 PO; -PREG75CA75 PO
[2023-01-05 12:56] LABS: CREATININE 2.2 mg/dL (0.5-1.5); POTASSIUM 5.1 mmol/L (3.5-5.1)
== END | disposition home or self-care (01) ==
LOC: LAB 09:14
PROVIDERS: ATTEND Internal Medicine Cardiovascular Disease
DX: I50.31 Acute diastolic (congestive) heart failure (principal)
CPT/HCPCS: 36415; 80048

== ENCOUNTER 2023-02-14 12:29 | Emergency (ER) | payer OTHER, MEDICARE ==
[~2023-02-14] VITALS: Ht 152.4 cm; Wt 70.3 kg
[2023-02-14 13:15] LABS: BASOPHILS % (AUTO) 0.5 % (0.0-5.0); HEMATOCRIT 26.5 % (36-48); LYMPHOCYTES % (AUTO) 13.2 % (21.0-51.0); MEAN CORPUSCULAR HEMOGLOBIN 29.4 pg (27.0-33.0); MEAN CORPUSCULAR HGB CONC 32.8 g/dL (32.0-36.0); MEAN CORPUSCULAR VOLUME 89.5 fL (79-99); MONOCYTES % (AUTO) 5.2 % (3.0-13.0); NEUTROPHILS % (AUTO) 75.8 % (40.0-77.0); PLATELET COUNT (AUTO) 207 K/uL (130-400); RED BLOOD CELL COUNT(AUTO) 2.96 MIL/uL (4.00-5.50); RED CELL DISTRIBUTION WIDTH 13.6 % (11.0-15.5); WHITE BLOOD COUNT (AUTO) 6.1 K/uL (4.8-10.8)
[2023-02-14 13:24] LABS: CREATININE 2.4 mg/dL (0.5-1.5); POTASSIUM 5.3 mmol/L (3.5-5.1)
[2023-02-14 13:27] LABS: INR 1.04 (0.85-1.15); PROTHROMBIN TIME 11.3 SEC (9.6-11.6)
[2023-02-14 13:29] LABS: ALBUMIN 3.1 g/dL (3.5-5.0); TOTAL PROTEIN, SERUM 6.3 g/dL (6.0-8.3)
[2023-02-14 13:47] LABS: B-TYPE NATRIURETIC PEPTIDE 432 pg/mL (0-100)
[2023-02-14] MEDS ORDERED: 0.9%NACL 1000ML 1,000 ML IV ONE (14:30)
[2023-02-14 18:04] VITALS: BP 138/58
== END 2023-02-14 18:08 | disposition short-term general hospital (02) ==
LOC: EDH 12:29
DX: R20.0 Anesthesia of skin (principal); R53.1 Weakness; I12.9 Hypertensive chronic kidney disease with stage 1 through stage 4 chronic kidney disease, or unspecified chronic kidney disease; E11.22 Type 2 diabetes mellitus with diabetic chronic kidney disease; N18.9 Chronic kidney disease, unspecified; I50.9 Heart failure, unspecified; Z79.899 Other long term (current) drug therapy; Z98.890 Other specified postprocedural states; Z88.8 Allergy status to other drugs, medicaments and biological substances
CPT/HCPCS: 36415; 70450; 80053; 83880; 84484; 85025; 85610; 85730; 93005

== ENCOUNTER → 2023-03-11 | Outpatient (CLI) | payer OTHER, MEDICARE ==
[2023-03-11 12:25] LABS: CREATININE 2.2 mg/dL (0.5-1.5); POTASSIUM 5.4 mmol/L (3.5-5.1)
== END | disposition home or self-care (01) ==
LOC: LAB 09:40
PROVIDERS: ATTEND Internal Medicine Cardiovascular Disease
DX: I50.31 Acute diastolic (congestive) heart failure (principal)
CPT/HCPCS: 36415; 80048; 83880

== ENCOUNTER → 2023-04-19 | Outpatient (CLI) | payer OTHER, MEDICARE | END | disposition home or self-care (01) | LOC: SHCH 12:39 | PROVIDERS: ATTEND Internal Medicine Cardiovascular Disease | DX: I87.2 Venous insufficiency (chronic) (peripheral) (principal); Z98.890 Other specified postprocedural states | CPT/HCPCS: 93971 ==

== ENCOUNTER → 2023-05-10 | Outpatient (CLI) | payer OTHER, MEDICARE | END | disposition home or self-care (01) | LOC: SHCH 08:01 | PROVIDERS: ATTEND Internal Medicine Cardiovascular Disease | DX: I87.2 Venous insufficiency (chronic) (peripheral) (principal); Z98.890 Other specified postprocedural states | CPT/HCPCS: 93971 ==

== ENCOUNTER → 2024-03-01 | Outpatient (CLI) | payer OTHER, MEDICARE ==
[~2024-03-01] MED LIST changes: -HYDR-4153 PO; +HYDR25TA67 PO
== END | disposition home or self-care (01) ==
LOC: SHCH 07:52
PROVIDERS: ATTEND Internal Medicine Cardiovascular Disease
DX: I08.3 Combined rheumatic disorders of mitral, aortic and tricuspid valves (principal); R01.1 Cardiac murmur, unspecified
CPT/HCPCS: 93306

== ENCOUNTER → 2024-03-08 | Outpatient (CLI) | payer OTHER, MEDICARE | END | disposition home or self-care (01) | LOC: SHCH 07:50 | PROVIDERS: ATTEND Internal Medicine Cardiovascular Disease | DX: I87.2 Venous insufficiency (chronic) (peripheral) (principal); I87.1 Compression of vein | CPT/HCPCS: 93970 ==

== ENCOUNTER → 2024-03-10 | Outpatient (CLI) | payer OTHER, MEDICARE ==
[2024-03-10] MEDS: REGADENOSON 0.4 MG/5 ML PF SYG IVP ONE (13:04)
== END | disposition home or self-care (01) ==
LOC: SHCH 08:04
PROVIDERS: ATTEND Internal Medicine Cardiovascular Disease
DX: R07.9 Chest pain, unspecified (principal); R06.09 Other forms of dyspnea
CPT/HCPCS: 78452; 93017; J2785; A9500 ×2; 96374

== ENCOUNTER → 2025-07-20 | Outpatient (CLI) | payer OTHER, MEDICARE ==
[2025-07-20 09:38] LABS: IMMATURE GRANULOCYTE ABSOLUTE 0.02 K/uL (0-1); NUCLEATED RED BLOOD CELLS 0.0 % (0.0-0.19); PLATELET COUNT (AUTO) 305 K/uL (130-400); RED BLOOD CELL COUNT(AUTO) 3.81 MIL/uL (4.00-5.50); RED CELL DISTRIBUTION WIDTH 12.9 % (11.0-15.5); WHITE BLOOD COUNT (AUTO) 6.4 K/uL (4.8-10.8)
[2025-07-20 09:48] LABS: INR 0.97 (0.85-1.15)
[2025-07-20 09:57] LABS: ASPARTATE AMINOTRANSFERASE 49.0 U/L (10-37); CREATININE 2.8 mg/dL (0.5-1.0); GLOMERULAR FILTR. RATE CALC 17.0 mL/min (>90); GLUCOSE,RANDOM 150.0 mg/dL (70-105); SODIUM SERUM 136.0 mmol/L (136-145); TOTAL PROTEIN, SERUM 6.6 g/dL (6.0-8.3); UREA NITROGEN, BLOOD 67.0 mg/dL (7-18)
[2025-07-23 11:12] LABS: E. HISTOLYTICA (AMEBIASIS) AB Negative (Negative)
== END | disposition home or self-care (01) ==
LOC: LAB 08:41
PROVIDERS: ATTEND Internal Medicine Gastroenterology
DX: K29.50 Unspecified chronic gastritis without bleeding (principal); R93.2 Abnormal findings on diagnostic imaging of liver and biliary tract
CPT/HCPCS: 36415; 80053; 82105; 85025; 85610; 86316; 86682; 86753

== ENCOUNTER → 2025-07-26 | Outpatient (CLI) | payer OTHER, MEDICARE ==
--- NOTE | 2025-07-26 22:50 | HMCIMG ---
EXAM: MRI ABDOMEN WITHOUT INTRAVENOUS CONTRAST Technique: Multiplanar, multisequence magnetic resonance imaging of the abdomen was performed without intravenous contrast, including T1- and T2-weighted sequences in axial and coronal planes. Contrast: No intravenous contrast administered. Clinical Information: Abnormal prior imaging of the liver and biliary tract. Findings: Lower chest: Minimal bilateral pleural effusions, greater on the left, with dependent basilar atelectasis. Mild cardiomegaly is suggested on the limited field of view. Liver: The liver measures 15 cm. Diffuse hepatic steatosis is present. A well-circumscribed lobulated mass in segment VII measures 8.0 ??? 8.0 ??? 6.0 cm. The mass is hyperintense on T2-weighted images and hypointense on T1-weighted images. Small internal cystic foci are present, which may reflect areas of internal necrosis. A 5 mm focus along the right lateral aspect of the lesion is noted and may represent calcification or blood products; calcification is suboptimally assessed by magnetic resonance imaging. Multiple adjacent satellite nodules of varying sizes are present, which are hyperintense on T2-weighted images and hypointense on T1-weighted images. Enhancement characteristics cannot be assessed on this non-contrast examination. Gallbladder and biliary tree: The gallbladder is not visualized, compatible with post-cholecystectomy status. The common bile duct measures 4 mm. There is no intrahepatic or extrahepatic biliary dilatation. Pancreas: The pancreas is atrophic without focal mass identified. Spleen: The spleen measures 12 cm without focal lesion. Adrenals: Normal morphology without focal mass. Kidneys and ureters: Kidneys are normal in size and contour without hydronephrosis or focal renal mass. Stomach and bowel: Visualized bowel loops are unremarkable. Peritoneum and mesentery: Minimal ascites is present. Aorta and inferior vena cava: Normal caliber without aneurysm or thrombosis. Bones/joints: Degenerative changes are noted in the visualized spine. Abdominal wall/soft tissues: No focal soft-tissue abnormality identified. Impression: * Large lobulated mass in hepatic segment VII measuring 8.0 ??? 8.0 ??? 6.0 cm with multiple adjacent T2-hyperintense/T1-hypointense satellite nodules in the background of hepatic steatosis; characterization is limited without intravenous contrast, but morphology and satellites raise concern for malignancy such as hepatocellular carcinoma or metastatic disease???recommend contrast-enhanced liver-protocol magnetic resonance imaging with multiphasic arterial/portal venous phases (or multiphasic computed tomography or contrast-enhanced ultrasound if magnetic resonance imaging contrast is contraindicated) and serum alpha-fetoprotein correlation; consider multidisciplinary liver tumor board discussion. * Post-cholecystectomy status with common bile duct caliber of 4 mm and no biliary dilatation. * Minimal bilateral pleural effusions with basilar atelectasis and mild cardiomegaly suggested on limited views???correlate clinically. * Pancreatic atrophy and minimal ascites. /[place]
== END | disposition home or self-care (01) ==
LOC: RAH 14:51
PROVIDERS: ATTEND Internal Medicine Gastroenterology
DX: K76.0 Fatty (change of) liver, not elsewhere classified (principal); J98.11 Atelectasis; M47.816 Spondylosis without myelopathy or radiculopathy, lumbar region; K86.89 Other specified diseases of pancreas; R93.2 Abnormal findings on diagnostic imaging of liver and biliary tract; Z90.49 Acquired absence of other specified parts of digestive tract
CPT/HCPCS: 74181

== ENCOUNTER → 2025-08-22 | Outpatient (CLI) | payer OTHER, MEDICARE ==
[2025-08-22 15:02] LABS: CREATININE 3.5 mg/dL (0.5-1.0); GLOMERULAR FILTR. RATE CALC 13.0 mL/min (>90); UREA NITROGEN, BLOOD 67.0 mg/dL (7-18)
== END | disposition home or self-care (01) ==
LOC: LAB 14:05
PROVIDERS: ATTEND Internal Medicine Gastroenterology
DX: R19.00 Intra-abdominal and pelvic swelling, mass and lump, unspecified site (principal); R93.2 Abnormal findings on diagnostic imaging of liver and biliary tract
CPT/HCPCS: 36415; 82565; 84520